=== PATIENT | female | born 2000 | race Caucasian/White ===

== ENCOUNTER 2019-01-19 18:56 | Outpatient (CLI) | payer OTHER | END 2019-01-19 23:10 | disposition home or self-care (01) | LOC: OBT 18:56 → L-D 18:57 → OBT 23:10 | DX: O26.892 Other specified pregnancy related conditions, second trimester (principal); Z3A.24 24 weeks gestation of pregnancy | CPT/HCPCS: 76815 ==

== ENCOUNTER 2019-02-10 10:46 | Outpatient (CLI) | payer OTHER ==
[2019-02-10 12:18] LABS: ADD MAN DIFF? NO
[2019-02-10 12:24] LABS: WHITE BLOOD COUNT 9.2 10^3/ul (4.8-10.8)
[2019-02-10 12:24] LABS: BASOPHILS % 0.2 % (0.0-2.0); EOSINOPHILS # 0.1 10^3/ul (0.0-0.5); EOSINOPHILS % 0.9 % (0.0-7.0); HEMATOCRIT 31.8 % (37.0-47.0); HEMOGLOBIN 10.5 g/dl (12.0-16.0); LYMPHOCYTES # 1.3 10^3/ul (0.8-2.9); LYMPHOCYTES % 13.6 % (18.0-55.0); MEAN CORPUSCULAR HEMOGLOBIN 28.5 pg (29.0-33.0); MEAN CORPUSCULAR VOLUME 86.4 fl (72.0-104.0); MEAN PLATELET VOLUME 8.8 fl (7.4-10.4); MONOCYTE # 0.8 10^3/ul (0.3-0.9); MONOCYTES % 8.2 % (0.0-13.0); NEUTROPHILS % 76.2 % (30.0-74.0); PLATELET COUNT 271 10^3/UL (140-415); RED BLOOD COUNT 3.68 10^6/ul (4.20-5.40); RED CELL DISTRIBUTION WIDTH 12.8 % (11.5-14.5)
[2019-02-10 13:14] LABS: ADD UMIC YES; UR ASCORBIC ACID 20 mg/dL (NEGATIVE); UR BACTERIA FEW /HPF (NONE SEEN); UR BILIRUBIN (Dip) NEGATIVE (NEGATIVE); UR BLOOD (Dip) NEGATIVE (NEGATIVE); UR CLARITY CLOUDY (CLEAR); UR COLOR YELLOW (YELLOW); UR GLUCOSE (Dip) NEGATIVE (NEGATIVE); UR KETONES (Dip) NEGATIVE (NEGATIVE); UR LEUKOCYTE ESTERASE (Dip) NEGATIVE Leu/ul (NEGATIVE); UR NITRITE (Dip) NEGATIVE (NEGATIVE); UR RBC 1 /HPF (0-5); UR SPECIFIC GRAVITY (Dip) 1.017 (1.003-1.030); UR TOTAL PROTEIN (Dip) NEGATIVE (NEGATIVE); UR UROBILINOGEN (Dip) NEGATIVE (NEGATIVE); UR WBC 9 /HPF (0-5)
== END 2019-02-10 15:30 | disposition home or self-care (01) ==
LOC: OBT 10:46 → L-D 10:48 → OBT 15:30
DX: O9A.213 Injury, poisoning and certain other consequences of external causes complicating pregnancy, third trimester (principal); S39.91XA Unspecified injury of abdomen, initial encounter; W54.1XXA Struck by dog, initial encounter; Y92.89 Other specified places as the place of occurrence of the external cause; O32.1XX0 Maternal care for breech presentation, not applicable or unspecified; Z3A.28 28 weeks gestation of pregnancy
CPT/HCPCS: 76817; 76818; 81001; 85025; 85460; 86850; 86900; 86901; 87086

== ENCOUNTER 2019-02-21 06:56 | Outpatient (CLI) | payer OTHER | END 2019-02-21 08:45 | disposition home or self-care (01) | LOC: OBT 06:56 → L-D 07:00 → OBT 08:45 | DX: O36.8130 Decreased fetal movements, third trimester, not applicable or unspecified (principal); Z3A.29 29 weeks gestation of pregnancy | CPT/HCPCS: 76818 ==

== ENCOUNTER 2019-04-10 00:12 | Outpatient (CLI) | payer OTHER | END 2019-04-10 03:12 | disposition home or self-care (01) | LOC: OBT 00:12 → L-D 00:14 → OBT 03:12 | DX: O36.8130 Decreased fetal movements, third trimester, not applicable or unspecified (principal); Z3A.36 36 weeks gestation of pregnancy | CPT/HCPCS: 76818 ==

== ENCOUNTER 2019-04-16 09:56 | Outpatient (CLI) | payer OTHER ==
[2019-04-16 10:46] LABS: RUPTURE FETAL MEMBRANES NEGATIVE (NEGATIVE)
== END 2019-04-16 11:54 | disposition home or self-care (01) ==
LOC: OBT 09:56 → L-D 09:56 → OBT 11:54
DX: O41.91X0 Disorder of amniotic fluid and membranes, unspecified, first trimester, not applicable or unspecified (principal); Z3A.01 Less than 8 weeks gestation of pregnancy
CPT/HCPCS: 76815; 76818; 84112

== ENCOUNTER 2019-04-17 01:28 | Inpatient (IN) | payer OTHER ==
[2019-04-17] MEDS ORDERED: AMPICILLIN 2 GM/NS (PMX) 100 ML IV (05:00)
[2019-04-17] MEDS ORDERED: CARBOPROST 250 MCG INJ IM (05:00)
[2019-04-17] MEDS ORDERED: METHYLERGONOVINE 0.2 MG INJ IM (05:00)
[2019-04-17] MEDS ORDERED: BUTORPHANOL 2 MG INJ IV (05:00)
[2019-04-17] MEDS ORDERED: MISOPROSTOL 200 MCG TAB PR (05:00)
[2019-04-17] MEDS ORDERED: OXYTOCIN 30 UNITS/LR 500 ML IV ×2 (05:00)
[2019-04-17] MEDS: LACTATED RINGER'S 1,000 ML IV ×4 (05:20→23:27)
[2019-04-17 05:41] LABS: ADD MAN DIFF? NO
[2019-04-17 05:45] LABS: WHITE BLOOD COUNT 11.3 10^3/ul (4.8-10.8)
[2019-04-17 05:45] LABS: BASOPHILS % 0.3 % (0.0-2.0); EOSINOPHILS # 0.1 10^3/ul (0.0-0.5); EOSINOPHILS % 0.5 % (0.0-7.0); HEMATOCRIT 34.9 % (37.0-47.0); HEMOGLOBIN 11.7 g/dl (12.0-16.0); LYMPHOCYTES # 1.4 10^3/ul (0.8-2.9); LYMPHOCYTES % 12.3 % (18.0-55.0); MEAN CORPUSCULAR HEMOGLOBIN 28.2 pg (29.0-33.0); MEAN CORPUSCULAR HGB CONC 33.5 g/dl (32.0-37.0); MEAN CORPUSCULAR VOLUME 84.1 fl (72.0-104.0); MEAN PLATELET VOLUME 9.5 fl (7.4-10.4); MONOCYTES % 8.4 % (0.0-13.0); NEUTROPHIL # 8.8 10^3/ul (1.6-7.5); NEUTROPHILS % 78.1 % (30.0-74.0); PLATELET COUNT 213 10^3/UL (140-415); RED BLOOD COUNT 4.15 10^6/ul (4.20-5.40); RED CELL DISTRIBUTION WIDTH 13.2 % (11.5-14.5)
[2019-04-17 05:55] LABS: ADD UMIC YES; UR ASCORBIC ACID NEGATIVE (NEGATIVE); UR BILIRUBIN (Dip) NEGATIVE (NEGATIVE); UR BLOOD (Dip) 2+ mg/dL (NEGATIVE); UR CLARITY CLEAR (CLEAR); UR COLOR STRAW (YELLOW); UR GLUCOSE (Dip) NEGATIVE (NEGATIVE); UR KETONES (Dip) NEGATIVE (NEGATIVE); UR LEUKOCYTE ESTERASE (Dip) NEGATIVE Leu/ul (NEGATIVE); UR NITRITE (Dip) NEGATIVE (NEGATIVE); UR RBC 1 /HPF (0-5); UR SPECIFIC GRAVITY (Dip) 1.004 (1.003-1.030); UR TOTAL PROTEIN (Dip) 1+ mg/dl (NEGATIVE); UR UROBILINOGEN (Dip) NEGATIVE (NEGATIVE); UR WBC 3 /HPF (0-5)
[2019-04-17 06:05] LABS: PROTIME 12.3 Sec (11.9-14.9)
[2019-04-17 06:06] LABS: PARTIAL THROMBOPLASTIN TIME 30.7 Sec (23.0-35.0)
[2019-04-17 06:36] LABS: ALANINE AMINOTRANSFERASE 12 IU/L (13-69); ALBUMIN 3.4 g/dl (3.3-4.9); ALKALINE PHOSPHATASE 150 IU/L (42-121); ANION GAP 9 (5-13); ASPARTATE AMINO TRANSFERASE 27 IU/L (15-46); BILIRUBIN,INDIRECT 0.6 mg/dl (0-1.1); BILIRUBIN,TOTAL 0.6 mg/dl (0.2-1.3); BLOOD UREA NITROGEN 7 mg/dl (7-20); CALCIUM 9.3 mg/dl (8.4-10.2); CARBON DIOXIDE 21 mmol/L (21-31); CHLORIDE 109 mmol/L (97-110); CREATININE 0.49 mg/dl (0.44-1.00); Estimated GFR > 60 mL/min (>60); GLUCOSE 88 mg/dl (70-220); SODIUM 139 mmol/L (135-144); TOTAL PROTEIN 6.8 g/dl (6.1-8.1)
[2019-04-17 06:37] LABS: URIC ACID 5.7 mg/dl (3.1-7.9)
[2019-04-17 06:50] LABS: POTASSIUM 4.2 mmol/L (3.5-5.1)
[2019-04-17 07:56] LABS: HEPATITIS B SURFACE ANTIGEN NEGATIVE (NEGATIVE)
[2019-04-17] MEDS ORDERED: AMPICILLIN 1 GM/NS (PMX) 50 ML IV (09:00)
[2019-04-17] MEDS ORDERED: NALOXONE (0.4 MG/ML) INJ IV ×2 (12:30→14:00)
[2019-04-17 14:56] LABS: RAPID PLASMA REAGIN NONREACTIVE (NR)
[2019-04-17] MEDS: FENTAnyl 2MCG/ML-ROPIV 0.2% 100 ML BAG EPI (19:27)
[2019-04-17] MEDS ORDERED: ACETAMINOPHEN 500 MG TAB (20:46)
[2019-04-17] MEDS: PIPER-TAZO 3.375 GM IV (PMX) 100 ML IVPB (21:01)
[2019-04-17] MEDS: ACETAMINOPHEN 500 MG TAB PO (21:01)
[2019-04-17] MEDS ORDERED: MINERAL OIL LIGHT 10 ML VIAL TOP (23:00)
[2019-04-18] MEDS: FENTAnyl 2MCG/ML-ROPIV 0.2% 100 ML BAG EPI (00:44)
[2019-04-18] MEDS: PIPER-TAZO 3.375 GM IV (PMX) 100 ML IVPB ×5 (02:55→21:15)
[2019-04-18] MEDS: ACETAMINOPHEN 500 MG TAB PO (03:07)
[2019-04-18] MEDS: MINERAL OIL 30ML CUP PO (03:53)
[2019-04-18] MEDS: LIDOCAINE 1% (MPF) 30 ML INJ INJ (03:53)
[2019-04-18] MEDS: OXYTOCIN 30 UNITS/LR 500 ML IV ×4 (03:55→08:56)
[2019-04-18] MEDS ORDERED: ONDANSETRON 4 MG INJ IV (05:00)
[2019-04-18] MEDS ORDERED: MISOPROSTOL 200 MCG TAB PR (05:00)
[2019-04-18] MEDS ORDERED: CARBOPROST 250 MCG INJ IM (05:00)
[2019-04-18] MEDS ORDERED: DIBUCAINE 1% 30 GM OINT TOP (05:00)
[2019-04-18] MEDS ORDERED: METHYLERGONOVINE 0.2 MG INJ IM (05:00)
[2019-04-18] MEDS ORDERED: OXYTOCIN 30 UNITS/LR 500 ML IV (05:00)
[2019-04-18] MEDS ORDERED: ACETAMINOPHEN 325 MG TAB PO ×2 (05:00)
[2019-04-18] MEDS: BENZOCAINE 20% 56 ML SPRAY TOP (08:50)
[2019-04-18] MEDS: WITCH HAZEL/GLYCERIN PAD PR (08:50)
[2019-04-18] MEDS: SENNA/DOCUSATE NA (8.6MG/50MG) TAB PO ×2 (08:50→21:14)
[2019-04-18] MEDS: LANOLIN HPA 1 PKT TOP (08:51)
[2019-04-18] MEDS: LACTATED RINGER'S 1,000 ML IV ×3 (08:54→20:55)
[2019-04-18] MEDS: LACTATED RINGER'S 1,000 ML IV* ×3 (08:55→21:15)
[2019-04-18] MEDS: IBUPROFEN 600 MG TAB PO ×2 (12:04→18:13)
[2019-04-19] MEDS: PIPER-TAZO 3.375 GM IV (PMX) 100 ML IVPB ×3 (03:19→15:18)
[2019-04-19] MEDS: LACTATED RINGER'S 1,000 ML IV* ×3 (04:32→20:32)
[2019-04-19] MEDS: LACTATED RINGER'S 1,000 ML IV ×3 (04:55→20:55)
[2019-04-19 08:13] LABS: ADD MAN DIFF? NO
[2019-04-19 08:18] LABS: BASOPHILS % 0.3 % (0.0-2.0); EOSINOPHILS # 0.2 10^3/ul (0.0-0.5); EOSINOPHILS % 1.3 % (0.0-7.0); HEMATOCRIT 24.3 % (37.0-47.0); HEMOGLOBIN 8.2 g/dl (12.0-16.0); LYMPHOCYTES # 1.1 10^3/ul (0.8-2.9); LYMPHOCYTES % 7.8 % (18.0-55.0); MEAN CORPUSCULAR HEMOGLOBIN 28.7 pg (29.0-33.0); MEAN CORPUSCULAR HGB CONC 33.7 g/dl (32.0-37.0); MEAN PLATELET VOLUME 9.3 fl (7.4-10.4); MONOCYTE # 0.9 10^3/ul (0.3-0.9); NEUTROPHIL # 12.2 10^3/ul (1.6-7.5); NEUTROPHILS % 83.7 % (30.0-74.0); PLATELET COUNT 194 10^3/UL (140-415); RED BLOOD COUNT 2.86 10^6/ul (4.20-5.40); RED CELL DISTRIBUTION WIDTH 13.8 % (11.5-14.5)
[2019-04-19 08:18] LABS: WHITE BLOOD COUNT 14.6 10^3/ul (4.8-10.8)
[2019-04-19] MEDS: LANOLIN HPA 1 PKT TOP (08:47)
[2019-04-19] MEDS: SENNA/DOCUSATE NA (8.6MG/50MG) TAB PO (08:47)
[2019-04-19] MEDS: MAGNESIUM HYDROXIDE 30ML CUP PO (08:47)
[2019-04-19] MEDS: IBUPROFEN 600 MG TAB PO (11:34)
[2019-04-20] MEDS: IBUPROFEN 600 MG TAB PO ×2 (00:10→11:27)
[2019-04-20] MEDS: LANOLIN HPA 1 PKT TOP (11:27)
[2019-04-20] MEDS: WITCH HAZEL/GLYCERIN PAD PR (11:27)
== END 2019-04-20 13:50 | disposition home or self-care (01) | DRG 807 ==
LOC: OBT 01:28 → PP1 04-18 06:45 → L-D 01:29 → OBT 04:35 → L-D 04:35
PROC: 10E0XZZ Delivery of Products of Conception, External Approach (ICD-10-PCS; principal; 2019-04-18)
PROC: 0KQM0ZZ Repair Perineum Muscle, Open Approach (ICD-10-PCS; 2019-04-18)
DX: O70.1 Second degree perineal laceration during delivery (principal); Z37.0 Single live birth; Z3A.37 37 weeks gestation of pregnancy
CPT/HCPCS: 62322; 80053; 81001; 84560; 85025; 85610; 85730; 86592; 86850; 86900; 86901; 87340; 88307; 99464